=== PATIENT | male | born 1950 | race Caucasian/White ===

== ENCOUNTER 2018-01-10 14:18 | Emergency (ER) | payer OTHER ==
[2018-01-10 14:25] VITALS: TEMP 97.6; BMI 47.5
--- NOTE | 2018-01-10 14:40 | PDOC ---
History of Present Illness <Kleber Cardozo S - Last Filed: 01/10/18 15:43> - History of Present Illness Initial Comments: 67 year old male with PMH of NIDDM presenting with right knee pain and loss of function after a trip and fall on a few stairs. He was walking down the stairs and tripped but was able to hold onto the railing then folded his right leg behind him temporarily but fell forward onto his right shoulder. He immediately felt pain in his right knee and noticed his right patella was displaced downward. He denies head trauma, neck trauma, LOC, or any skin breakage. He landed on his right shoulder but denies pain or bony deformity to that area. He hurt his left knee in 2013 with a similar mechanism and had surgery to that area. Is not on blood thinners or aspirin. 01/10/18 14:31 <Yusra Vazquez - Last Filed: 01/10/18 17:42> - General Chief Complaint: Injury Stated Complaint: RT KNEE INJURY S/P FALL Time Seen by Provider: 01/10/18 14:20 Past History <Kleber Cardozo S - Last Filed: 01/10/18 15:43> - Past Medical History Anemia: No Asthma: No Cancer: No Cardiac Disorders: No CVA: No COPD: No CHF: No Dementia: No Diabetes: Yes (NIDDM DX 2006) GI Disorders: No Disorders: No HTN: No Hypercholesterolemia: No Liver Disease: No Seizures: No Thyroid Disease: No - Surgical History Abdominal Surgery: No Appendectomy: No Cardiac Surgery: No Cholecystectomy: No Lung Surgery: No Neurologic Surgery: No Orthopedic Surgery: Yes - Suicide/Smoking/Psychosocial Hx Smoking History: Former smoker Have you smoked in the past 12 months: No Number of Cigarettes Smoked Daily: 0 If you are a former smoker, when did you quit?: 1997 Information on smoking cessation initiated: No Hx Alcohol Use: No Drug/Substance Use Hx: No Substance Use Type: None Hx Substance Use Treatment: No <Yusra Vazquez - Last Filed: 01/10/18 17:42> - Past Medical History Allergies/Adverse Reactions: Allergies Allergy/AdvReac Type Severity Reaction Status Date / Time No Known Allergies Allergy Verified 01/10/18 14:19 Home Medications: Ambulatory Orders Glipizide 50 mg PO BID 03/15/18 Review of Systems - Review of Systems Constitutional: No: Chills, Diaphoresis, Fever, Loss of Appetite HEENTM: No: Blurred Vision Respiratory: No: Cough, Shortness of Breath, Stridor, Wheezing Cardiac (ROS): No: Chest Pain, Irregular Heart Rate, Palpitations, Syncope, Chest Tightness ABD/GI: No: Constipated, Nausea, Vomiting : No: Burning, Dysuria, Incontinence, Pain, Urgency Musculoskeletal: Yes: Joint Pain. No: Back Pain, Gout, Muscle Weakness Integumentary: No: Bruising, Change in Color, Erythema, Lesions Neurological: No: Numbness, Paresthesia, Tingling, Tremors, Weakness Psychiatric: No: Anxiety, Depression <Yusra Vazquez - Last Filed: 01/10/18 17:42> *Physical Exam - Vital Signs Last Vital Signs Temp Pulse Resp BP Pulse Ox 97.6 F 64 18 144/74 97 01/10/18 14:18 01/10/18 14:18 01/10/18 14:18 01/10/18 14:18 01/10/18 14:18 <Kleber Cardozo S - Last Filed: 01/10/18 15:43> - Vital Signs Last Vital Signs Temp Pulse Resp BP Pulse Ox 97.6 F 64 18 144/74 97 01/10/18 14:18 01/10/18 14:18 01/10/18 14:18 01/10/18 14:18 01/10/18 14:18 - Physical Exam General Appearance: Yes: Nourished, Appropriately Dressed. No: Apparent Distress HEENT: positive: EOMI, RANDAL, Normal ENT Inspection, Normal Voice Neck: positive: Tender, Trachea midline, Normal Thyroid, Supple. negative: Rigid Respiratory/Chest: positive: Lungs Clear, Normal Breath Sounds. negative: Chest Tender, Respiratory Distress, Accessory Muscle Use Cardiovascular: positive: Regular Rhythm, Regular Rate Gastrointestinal/Abdominal: positive: Normal Bowel Sounds, Flat, Soft. negative : Tender Lymphatic: negative: Adenopathy, Tenderness Musculoskeletal: positive: Decreased Range of Motion (Right patella slightly inferior displaced and hypermobile to inferior displacement. Also has inferior quadraceps/ suprapatellar mass loss with TTP over that area as well. Complete unable to flex quadraceps to create purposeful movement but do see muscle activation.). negative: Normal Inspection Extremity: positive: Normal Capillary Refill, Normal Inspection. negative: Normal Range of Motion (Per MSK section) Integumentary: positive: Normal Color, Dry, Warm Neurologic: positive: Fully Oriented, Alert, Normal Mood/Affect, Normal Response (5/5 with exception per MSK). negative: Motor Strength 5/5 <Yusra Vazquez - Last Filed: 01/10/18 17:42> ED Treatment Course - LABORATORY CBC & Chemistry Diagram: 01/10/18 14:45 01/10/18 14:45 - ADDITIONAL ORDERS Additional order review: Laboratory Results 01/10/18 01/10/18 14:45 14:45 PT with INR 12.5 INR 1.12 Sodium 132 L Potassium 4.0 Chloride 105 Carbon Dioxide 24 Anion Gap 3 L BUN 15 Creatinine 0.9 Creat Clearance w eGFR > 60 Random Glucose 277 H Calcium 8.7 Total Bilirubin 1.4 H AST 31 ALT 36 Alkaline Phosphatase 80 Total Protein 6.2 L Albumin 3.9 01/10/18 14:45 RBC 4.70 MCV 81.8 MCHC 35.8 RDW 13.2 MPV 8.0 <JulianeRemus S - Last Filed: 01/10/18 15:43> - LABORATORY CBC & Chemistry Diagram: 01/10/18 14:45 01/10/18 14:45 <Yusra Vazquez - Last Filed: 01/10/18 17:42> Medical Decision Making - Medical Decision Making Physical exam highly concerning for quadraceps tendon and muscle rupture. Knee XR negative for patellar fracture. Labs WNL with slight hyponatremia and hyperglycmeia. Seen by Dr. Workman in our ED and he was placed in a knee immobilizer, given crutches, and sent to have an MRI tonight with a pre-op evaluation set for tomorrow with Dr. Workman's associate. 01/10/18 17:27 <Yusra Vazquez - Last Filed: 01/10/18 17:42> *DC/Admit/Observation/Transfer <Moucha,Remus S - Last Filed: 01/10/18 15:43> <Yusra Vazquez - Last Filed: 01/10/18 17:42> Diagnosis at time of Disposition: Right knee injury Qualifiers: Encounter type: initial encounter Qualified Code(s): S89.91XA - Unspecified injury of right lower leg, initial encounter Quadriceps muscle rupture Qualifiers: Encounter type: initial encounter Laterality: right Qualified Code(s): S76.111A - Strain of right quadriceps muscle, fascia and tendon, initial encounter - Discharge Dispostion Disposition: HOME Condition at time of disposition: Stable - Referrals Referrals: Hill Huynh MD [Primary Care Provider] - Juan Workman MD [Staff Physician] - - Patient Instructions Printed Discharge Instructions: DI for Knee Sprain, DI for Quadriceps Strain Additional Instructions: As arranged by Dr Workman, have the MRI done tonight. See Dr Workman in the office tomorrow
[2018-01-10 14:57] LABS: HEMATOCRIT 38.5 % (35.4-49); HEMOGLOBIN 13.8 GM/dl (11.7-16.9); MCH 29.3 pg (25.7-33.7); MCHC 35.8 g/dl (32.0-35.9); MEAN CELL VOLUME 81.8 fl (80-96); PLATELET COUNT 235 K/MM3 (134-434); RDW 13.2 % (11.9-15.9); WHITE BLOOD COUNT 10.5 K/mm3 (4.0-10.8)
[2018-01-10 15:18] LABS: INR 1.12 (0.82-1.09); PROTHROMBIN TIME (PATIENT) 12.5 SEC (10.2-13.0)
[2018-01-10 15:22] LABS: ALBUMIN 3.9 g/dl (3.5-5.0); ALK PHOS 80 U/L (32-92); ANION GAP 3 (8-16); BILIRUBIN,TOTAL 1.4 mg/dl (0.2-1.0); BLOOD UREA NITROGEN 15 mg/dl (7-18); CALCIUM 8.7 mg/dl (8.4-10.2); CHLORIDE 105 mmol/L (98-107); CO2 24 mmol/L (22-28); CREATININE 0.9 mg/dl (0.6-1.3); GLUCOSE,RANDOM 277 mg/dl (74-106); SGOT/AST 31 U/L (10-42); SGPT/ALT 36 U/L (10-40); SODIUM 132 mmol/L (136-145); TOT PROT 6.2 g/dl (6.4-8.3)
--- NOTE | 2018-01-10 15:44 | PDOC ---
Attending Attestation - HPI HPI: 01/10/18 15:44 The patient is a 48 year old male with past medical history of NIDDM who arrives to the ED s/p mechanical fall today. The patient was walking down the stairs and fell, resulting in him falling on his right shoulder. He denies pain to the shoulder, however the patient noticed pain in his right knee upon fall and was unable to get up. The patient denies any head trauma or LOC. He denies use of any anticoagulants. - Physicial Exam PE: 01/10/18 15:45 GENERAL: Awake, alert, and fully oriented, in no acute distress HEAD: No signs of trauma NECK: Normal ROM, supple, no lymphadenopathy, JVD, or masses EXTREMITIES: Normal range of motion, no edema. No clubbing or cyanosis. No cords, erythema, or tenderness NEUROLOGICAL: Cranial nerves II through XII grossly intact. Normal speech, normal gait SKIN: Warm, Dry, normal turgor, no rashes or lesions noted. - Medical Decision Making 01/10/18 15:47 Documentation prepared by Jacque Álvarez, acting as medical practice administrator for Kleber Cardozo MD. 01/10/18 15:[address] call [address] to Dr. Workman, case was discussed. Will send in colleague to see and evaluate patient. <Jacque Álvarez - Last Filed: 01/10/18 16:03> - Resident Resident Name: Yusra Vazquez - ED Attending Attestation I have performed the following: I have examined & evaluated the patient, The case was reviewed & discussed with the resident, I agree w/resident's findings & plan, Exceptions are as noted <Kleber Cardozo - Last Filed: 01/10/18 17:08> Discharge Disposition - Discharge Dispostion Admit: No <Kleber Cardozo - Last Filed: 01/10/18 17:08> - Diagnosis Right knee injury Qualifiers: Encounter type: initial encounter Qualified Code(s): S89.91XA - Unspecified injury of right lower leg, initial encounter Quadriceps muscle rupture Qualifiers: Encounter type: initial encounter Laterality: right Qualified Code(s): S76.111A - Strain of right quadriceps muscle, fascia and tendon, initial encounter - Discharge Dispostion Condition at time of disposition: Stable - Referrals Referrals: Hill Huynh MD [Primary Care Provider] - Juan Workman MD [Staff Physician] - - Patient Instructions Printed Discharge Instructions: DI for Quadriceps Strain, DI for Knee Sprain Additional Instructions: As arranged by Dr Workman, have the MRI done tonight. See Dr Workman in the office tomorrow - Post Discharge Activity
[2018-01-10 17:59] VITALS: BP 138/69; PULSE 85
--- NOTE | 2018-01-11 15:09 | EKG ---
Test Reason : Blood Pressure : / mmHG Vent. Rate : 056 BPM Atrial Rate : 056 BPM P-R Int : 170 ms QRS Dur : 114 ms QT Int : 440 ms P-R-T Axes : 052 009 046 degrees QTc Int : 424 ms SINUS BRADYCARDIA NON-SPECIFIC INTRA-VENTRICULAR CONDUCTION DELAY NO PREVIOUS ECGS AVAILABLE Confirmed by GERONIMO RUBY MD ([id number]) on 01/11/2018 3:09:34 PM Referred By: DR RAYO Confirmed By:GERONIMO RUBY MD
== END 2018-01-10 17:10 | disposition home or self-care (01) ==
LOC: FER 14:18 → SUPCPDRO 14:18 → FER 17:10
PROC: 2W3QX1Z Immobilization of Right Lower Leg using Splint (ICD-10-PCS; principal; 2018-01-10)
DX: S76.111A Strain of right quadriceps muscle, fascia and tendon, initial encounter (principal); S89.91XA Unspecified injury of right lower leg, initial encounter; W10.9XXA Fall (on) (from) unspecified stairs and steps, initial encounter; Y93.89 Activity, other specified; Y92.9 Unspecified place or not applicable; Z87.891 Personal history of nicotine dependence
CPT/HCPCS: 36415; 71045-TC-FY; 73564-TC-RT-FY; 80053; 85027; 85610; 86850; 86900; 86901; 93005; 99284-25

== ENCOUNTER 2018-01-15 12:53 | Day surgery (SDC) | payer OTHER ==
[2018-01-14 14:55] VITALS: BMI 40.4
[2018-01-15] MEDS ORDERED: ROPIVACAINE HCL 0.5% 30ML VIAL ONE (14:52)
[2018-01-15] MEDS ORDERED: DEXAMETHASONE SOD PHOSPHATE/PF 10 MG/ML SDV ONE (14:52)
[2018-01-15] MEDS ORDERED: MIDAZOLAM HCL 2 MG/2 ML SINGLE DOSE VIAL ONE (14:52)
[2018-01-15] MEDS ORDERED: ceFAZolin SODIUM 1 GM VIAL ONE (15:52)
[2018-01-15] MEDS ORDERED: PROPOFOL 20 ML ONE ×2 (16:07→16:36)
[2018-01-15] MEDS ORDERED: GUM MASTIC/STORAX/MSAL/ALCOHOL 1 DRP DROPSBTL MC ONE (17:20)
[2018-01-15] MEDS ORDERED: oxyCODONE HCL 5 MG TABLET PO PRN (17:31)
[2018-01-15] MEDS ORDERED: ONDANSETRON 4 MG/2 ML VIAL IVPUSH PRN (17:31)
[2018-01-15] MEDS ORDERED: ACETAMINOPHEN 1000 MG/100 ML VIAL (NON FORMULARY) IVPB PRN (17:31)
[2018-01-15] MEDS ORDERED: SODIUM CHLORIDE 1,000 ML IV SCH (17:45)
--- NOTE | 2018-01-15 18:01 | SURG ---
Surgery Tipple Greaser Note Tipple Greaser: Kalie Aldana PA-C Date of Service: 01/15/18 Diagnosis: right quad tendon rupture Procedure: Right quad tendon repair I was present for the entirety of the operative procedure. For further detail, please refer to operative report. Visit type - Case Type Case Type: Scheduled Admission - Emergency Emergency Visit: No - New patient This patient is new to me today: Yes Date on this admission: 01/15/18
[2018-01-15] MEDS ORDERED: ACETAMINOPHEN INJECTION 100 ML IVPB ONE (19:06)
[2018-01-15] MEDS ORDERED: oxyCODONE HCL 5 MG TABLET ONE (19:11)
[2018-01-15] MEDS: oxyCODONE HCL 5 MG TABLET PO PRN ×2 (19:15→23:09)
[2018-01-15] MEDS: ACETAMINOPHEN 325 MG TABLET (FP) PO SCH (21:39)
[2018-01-15] MEDS ORDERED: ENOXAPARIN NA (PORCINE) 30 MG/0.3 ML DISP.SYRIN SQ ONE (22:00)
[2018-01-15] MEDS ORDERED: glipiZIDE 10 MG TABLET (FP) PO SCH (22:00)
[2018-01-15] MEDS ORDERED: ASPIRIN 325 MG TABLET PO ONE (22:00)
[2018-01-16] MEDS: ACETAMINOPHEN 325 MG TABLET (FP) PO SCH ×2 (00:37→06:07)
[2018-01-16] MEDS: oxyCODONE HCL 5 MG TABLET PO PRN (03:37)
[2018-01-16] MEDS ORDERED: glipiZIDE 5 MG TABLET (FP) ONE (06:03)
[2018-01-16 06:33] VITALS: BP 152/77; PULSE 65; TEMP 97.8
[2018-01-16] MEDS ORDERED: glipiZIDE 10 MG TABLET (FP) PO SCH (07:00)
[2018-01-16] MEDS ORDERED: INSULIN SLIDING SCALE (NOVOLOG) 1 VIAL SQ SCH (07:00)
--- NOTE | 2018-01-16 07:58 | DS ---
Physical Exam: SUBJECTIVE: 67 yo male POD #1 right quad tendon repair. patient Patient seen and examined at bedside with no complaints. Patient states pain is controlled. He is voiding and ambulating with Physical therapy TTWB on right side. He denies any CP, SOB, N/V, fever or chills. OBJECTIVE: Vital Signs Period Temp Pulse Resp BP Sys/Marion Pulse Ox Last 24 Hr 97.4 F-98.5 F 59-74 16-20 144-167/63-94 93-97 PHYSICAL EXAM GENERAL: The patient is awake, alert, and fully oriented, in no acute distress. HEAD: Normal with no signs of trauma. EYES: extraocular movements intact, sclera anicteric, conjunctiva clear. NECK: Trachea midline, LUNGS: unlabored resp on RA no accessory muscle use. EXTREMITIES: Right LE in knee immobilizer, Dressings c/d/i, b/l LE compartments soft supple and non-tender to palpation. positive dorsi/plantar flexion intact b /l 2+ pulses, warm, well-perfused PSYCH: Normal mood, normal affect. SKIN: Warm, dry, normal turgor, no rashes or lesions noted. LABS Laboratory Results - last 24 hr 01/15/18 01/15/18 01/16/18 13:47 19:04 06:02 POC Glucometer 117 159 174 HOSPITAL COURSE: normal without complication Date of Admission:01/15/18 Date of Discharge: 01/16/18 Minutes to complete discharge: 20 Discharge Summary Reason For Visit: TORN QUADRICEPS TENDON, RIGHT KNEE Condition: Stable - Instructions Diet, Activity, Other Instructions: Discharge Instructions Dear PAULINE BEARD, Post Operative Instructions Physical activity Resume your normal everyday activity as tolerated no heavy lifting or exercise until seen by your surgeon. You may walk with the use of a walker and knee immobilizer at all times but no weight bearing on right leg- Toe touch weight bearing only. You can resume driving once cleared by your surgeon. Wound care Keep your dressing clean and dry until seen by your surgeon at your post op appointment. Elevate operative leg when sitting or laying down. Ice can be applied over the splint, but take care to keep the dressings dry. Diet There are no dietary restrictions. Eat healthy, high-fiber foods. Drink 6 to 8 glasses of liquid each day. This will assist in keeping your bowels are regular. Pain management You may take Tylenol or acetaminophen. Any pain prescription medication ordered should be taken as prescribed for moderate to severe pain. TAKE ASPIRIN (OTC) 325mg twice x 4 weeks post op to prevent blood clots. Call Dr. Fregoso for any of the following: Severe pain not relieved by medication Fever of 101 or higher Excessive bleeding or drainage on dressing Inability to urinate Worsening pain or numbness on operative leg Call the office for a post operative appointment. Disposition: HOME - Home Medications Comprehensive Discharge Medication List: Ambulatory Orders Glipizide 10 mg PO BID 01/14/18 Problem List - Problems (1) Quadriceps muscle rupture Assessment/Plan: POD #1 quad tendon repair doing well. 1) TTWB on right LE with knee immobilizer on at all times. 2) Ice and elevate right LE 3) Aspirin 325mg BID x 4 weeks for DVT prophylaxis 4) call to schedule follow up with Dr Fregoso upon discharge Code(s): S76.119A - STRAIN OF UNSP QUADRICEPS MUSCLE, FASCIA AND TENDON, INIT This patient is new to me today: Yes Date on this admission: 01/16/18 Emergency Visit: No Critical Care patient: No - Discharge Referral Referred to [facility] Med [facility].: No
[2018-01-16 09:04] LABS: ANION GAP 7 (8-16); BLOOD UREA NITROGEN 18 mg/dl (7-18); CALCIUM 8.8 mg/dl (8.4-10.2); CHLORIDE 103 mmol/L (98-107); CO2 26 mmol/L (22-28); CREATININE 0.8 mg/dl (0.6-1.3); GLUCOSE,RANDOM 149 mg/dl (74-106); SODIUM 136 mmol/L (136-145)
[2018-01-16 09:13] LABS: HEMATOCRIT 39.6 % (35.4-49); HEMOGLOBIN 13.8 GM/dl (11.7-16.9); MCH 28.8 pg (25.7-33.7); MCHC 34.8 g/dl (32.0-35.9); MEAN CELL VOLUME 82.8 fl (80-96); MEAN PLT VOLUME 8.3 fl (7.5-11.1); PLATELET COUNT 290 K/MM3 (134-434); RBC 4.78 M/mm3 (4.00-5.60); RDW 13.6 % (11.9-15.9); WHITE BLOOD COUNT 12.7 K/mm3 (4.0-10.8)
[2018-01-16] MEDS ORDERED: ENOXAPARIN NA (PORCINE) 40 MG/0.4 ML DISP.SYRIN SQ ONE (10:00)
[2018-01-16] MEDS ORDERED: ENOXAPARIN NA (PORCINE) 30 MG/0.3 ML DISP.SYRIN SQ ONE (10:00)
--- NOTE | 2018-01-21 08:57 | OP ---
DATE OF OPERATION: 01/15/2018 PREOPERATIVE DIAGNOSIS: Quadriceps tendon rupture, right knee. POSTOPERATIVE DIAGNOSIS: Quadriceps tendon rupture, right knee. PROCEDURE: Repair of quadriceps tendon rupture, right knee. SURGEON: Logan Sun MD [employer]PER[employer]: RADHA Salomon DESCRIPTION OF PROCEDURE: The patient was seen in the preoperative holding area where informed consent was obtained. The right leg was marked. A regional block was performed by the anesthesia team. The patient was then brought to the operating room and placed on the table in a seated position. After a spinal anesthetic was administered, the patient was turned to a supine position with his head stabilized and bony prominences padded. A bump was placed beneath the right hip. A pneumatic tourniquet was placed about the upper right thigh and set at 300 mmHg. The right knee was prepped and free draped in sterile fashion. A time-out was performed identifying the patient and the correct surgical site. The right leg was exsanguinated with an Esmarch bandage. The knee was flexed and the tourniquet inflated. A 10-cm midline incision was made beginning over the midportion of the patella and extending proximally over the center of the patella tendon. Subcutaneous tissue was divided by electrocautery. Thick medial and lateral soft tissue flaps were raised. A large hemarthrosis was evacuated from the knee. The tear was seen to be a distal complete tear extending from the medial retinaculum over to the lateral retinaculum and was fairly transverse in nature. We lightly debrided the torn ends of the quadriceps tendon, and we debrided the patella attachment side for the quadriceps tendon using sharp scalpel dissection and rongeurs to expose the bone. We placed 2 drill holes for the insertion sites of 2 Arthrex 4.75-mm SwiveLoc anchors. A small guidewire was drilled followed by a cannulated reamed and a tap. We then used FiberTape to place 2 Charlotte sutures into the quadriceps tendon when extending medial and down the center of the tendon and the second extending beginning lateral and coming down the center of the tendon. Excellent purchase on the tendon was noted. We loaded the medial set of FiberTape sutures and loaded them onto a SwiveLoc anchor. The knee was extended. A tenaculum clamp was placed about the patella for countertraction. The anchor was malleted into the hole and screwed into place with excellent bony purchase. Good apposition of the tendon to the patella was noted. We repeated this for the second lateral group of FiberTape sutures. They were loaded onto a second SwiveLoc anchor, and the anchor was deployed into the lateral drill hole. We then used the free needle to pass both the FiberTape and the anchor-retaining FiberWire suture through the proximal and distal portions of the quadriceps tendon to reinforce the repair. The suture ends were cut with a scalpel blade. We then reinforced the repair from medial to lateral with suture tape [id number] interrupted sutures. The tears in the lateral retinaculum were reapproximated using No. 1 and 0 Vicryl [id number] interrupted sutures. The wound was copiously irrigated with pulse lavage both prior to the quadriceps tendon closure and after the quadriceps tendon closure. The tourniquet was released. The wound bleeding points were coagulated. The repair was noted to be stable to at least 50 degrees of flexion. We repaired the subcutaneous layer using 2-0 Vicryl inverted sutures, and the skin was closed with a 3-0 V-Lock subcuticular closure. Mastisol, Steri-Strips, and an Aquacel dressing were applied. A knee immobilizer was then applied. The patient was revived from sedation and taken to the recovery room in stable condition. Total blood loss 25 mL. Pathology specimen, none. LOGAN SUN M.D. [id number]
== END 2018-01-16 09:00 | disposition home or self-care (01) ==
LOC: FASU 12:53 → FM/S 19:49 → FASU 01-16 09:00
PROVIDERS: ATTEND Orthopaedic Surgery Sports Medicine
PROC: 0LQQ0ZZ Repair Right Knee Tendon, Open Approach (ICD-10-PCS; principal; 2018-01-15 16:11)
DX: S76.111A Strain of right quadriceps muscle, fascia and tendon, initial encounter (principal); X58.XXXA Exposure to other specified factors, initial encounter; Y93.9 Activity, unspecified; Y92.9 Unspecified place or not applicable
CPT/HCPCS: 36415; 80048; 82962; 85027; 94760; 97116-GP; 97161-GP; J0131; J7030